=== PATIENT | female | born 1990 | race Caucasian/White ===

== ENCOUNTER → 2017-12-22 | Outpatient (CLI) | payer OTHER ==
[~2017-12-22] MED LIST: DROS1TAB PO; FLU60SYR19 IM; FLUO40CA PO; SYNT88TA PO
[2017-12-22 11:19] LABS: HEMATOCRIT 38.4 % (35.0-46.0); HEMOGLOBIN 13.2 GM/DL (11.6-15.3); MEAN CELL VOLUME 86.2 FL (80.0-100.0); MEAN CORPUSCULAR HEMOGLOBIN 29.6 PG (27.0-34.0); MEAN CORPUSCULAR HGB CONC 34.3 % (32.0-36.0); MEAN PLATELET VOLUME 8.3 FL (7.0-11.0); PLATELET COUNT 313 TH/MM3 (150-450); RED BLOOD COUNT 4.46 MIL/MM3 (4.00-5.30); RED CELL DISTRIBUTION WIDTH 12.6 % (11.6-17.2); WHITE BLOOD COUNT 8.7 TH/MM3 (4.0-11.0)
[2017-12-22 11:20] LABS: BACTERIA, URINE OCC /hpf; BILIRUBIN, URINE NEG (NEG); BLOOD, URINE NEG (NEG); GLUCOSE,URINE NEG (NEG); KETONE, URINE NEG (NEG); MUCUS URINE FEW /lpf (OCC); NITRITE,URINE NEG (NEG); PH, URINE 5.5 (5.0-8.5); SQUAMOUS EPITHELIAL CELL URINE 12 /hpf (0-5); URINE COLOR YELLOW (YELLW/STRAW); URINE LEUKOCYTE ESTERASE LARGE (NEG)
[2017-12-22 11:33] LABS: ALBUMIN 3.3 GM/DL (3.4-5.0); AST (GOT) 8 U/L (15-37); BICARBONATE 23.3 MEQ/L (21.0-32.0); BLOOD UREA NITROGEN 10 MG/DL (7-18); CALCIUM 8.9 MG/DL (8.5-10.1); CHLORIDE 103 MEQ/L (98-107); CREATININE 0.72 MG/DL (0.50-1.00); GLOMERULAR FILTRATION RATE 99 ML/MIN (>89); GLUCOSE,FASTING 81 MG/DL (74-99); SODIUM (NA) 135 MEQ/L (136-145)
[2017-12-22 11:34] LABS: ALT (GPT) 12 U/L (10-53); CHOLESTEROL 141 MG/DL (120-200)
[2017-12-22 11:43] LABS: ALKALINE PHOSPHATASE 81 U/L (45-117); CHOLESTEROL/ HDL RATIO 3.14 RATIO; HDL CHOLESTEROL 44.8 MG/DL (40.0-60.0); LDL CHOLESTEROL 69 MG/DL (0-99); TOTAL BILIRUBIN ADULT 0.2 MG/DL (0.2-1.0); TOTAL PROTEIN 7.4 GM/DL (6.4-8.2); TRIGLYCERIDES 138 MG/DL (42-150)
== END ==
LOC: CLAB 10:34
PROVIDERS: ATTEND Family Medicine
DX: Z00.00 Encounter for general adult medical examination without abnormal findings (principal); E03.9 Hypothyroidism, unspecified
CPT/HCPCS: 36415; 80053; 80061; 81001; 84443; 85027